=== PATIENT | female | born 1975 | race Caucasian/White ===

== ENCOUNTER 2017-04-24 21:14 | Emergency (ER) | payer MEDICAID ==
[2017-04-24] MEDS ORDERED: OXYCODONE-ACETAMINOPHEN 5-325 MG TABLET PO ONE (23:03)
--- NOTE | 2017-04-24 23:05 | ER Document Report ---
ED General - General Chief Complaint: Foot Pain Stated Complaint: LEFT FOOT SWELLING Time Seen by Provider: 04/24/17 22:58 Notes: 41-year-old female with a history of extensive lower extremity trauma and chronic pain and uses a wheelchair as needed presents with bruising to her left forefoot. 2 days ago she dropped a piece of furniture on her lateral midfoot which had a bump on it to begin with and it hurt worse but this morning she woke up with pain and bruising at the base of her second third and fourth toes. She has intermittent loss of sensation on the bottom of the foot but also has sciatica on that side. She is a smoker. She denies foot feeling cold or red. Denies fever or chills. Pain is been severe at times but is now moderate. TRAVEL OUTSIDE OF THE [place] IN LAST 30 DAYS: No Past Medical History - Social History Smoking Status: Current Every Day Smoker Chew tobacco use (# tins/day): No Frequency of alcohol use: None Drug Abuse: None Occupation: Disabled Family History: None Patient has suicidal ideation: No Patient has homicidal ideation: No - Medical History Notes: Extensive trauma to the left foot and right ankle in the past Renal/ Medical History: Denies: Hx Peritoneal Dialysis Review of Systems - Review of Systems Notes: REVIEW OF SYSTEMS GEN: Denies fever, chills, weight loss ENT: Denies sore throat, nasal discharge, ear pain EYES: Denies blurry vision, eye pain, discharge CV: Denies chest pain, palpitations, edema RESP: Denies cough, shortness of breath, wheezing GI: Denies abdominal pain, nausea, vomiting, diarrhea MSK: Chronic back pain chronic foot pain, SKIN: Denies rash, skin lesions LYMPH: Denies swollen glands/lymph nodes NEURO: Denies headache, focal weakness or numbness, dizziness PSYCH: Denies depression, suicidal or homicidal ideation PHYSICAL EXAMINATION General: No acute distress, well-nourished Head: Atraumatic, normocephalic ENT: Mouth normal, oropharynx moist, no exudates or tonsillar enlargement Eyes: Conjunctiva normal, pupils equal, lids normal Neck: No JVD, supple, no guarding CVS: Normal rate, regular rhythm, no murmurs Resp: No resp distress, equal and normal breath sounds bilaterally GI: Nondistended, soft, no tenderness to palpation, no rebound or guarding Ext: Chronic appearing deformity of the left foot. Tender over the lateral midfoot. Bruising at the base of the second third and fourth toes with tenderness. Warm well perfused with bilateral pedal pulses intact. Back: No CVA or midline TTP Skin: No rash, warm Lymphatic: No lymphadeopathy noted Neuro: Awake, alert. Face symmetric. GCS 15. Normal sensation in feet bilaterally. Physical Exam - Vital signs Vitals: Temp Pulse Resp BP Pulse Ox 97.9 F 83 16 112/57 L 96 04/24/17 21:28 04/24/17 21:28 04/24/17 21:28 04/24/17 21:28 04/24/17 21:28 Course - Re-evaluation Re-evalutation: 04/24/17 23:05 Bruising of the foot after traumatic accident. Fracture versus contusion. Loss of sensation is not likely due to this but rather to pre-existing musculoskeletal trauma to the lower extremity and known sciatica. X-ray Percocet reassess. 04/24/17 23:45 X-ray negative. Percocet was given for pain with some improvement. Hard soled shoe, weightbearing as tolerated (the patient is already bearing weight close ( , follow-up in a week if not better for repeat films for occult fracture. Doubt vascular infectious etiology. Motrin for pain I have discussed with the patient there likely diagnosis, aftercare plan, follow -up plans and my usual and customary return precautions. They verbalized understanding of this. - Vital Signs Vital signs: Temp Pulse Resp BP Pulse Ox 97.9 F 83 16 112/57 L 96 04/24/17 21:28 04/24/17 21:28 04/24/17 21:28 04/24/17 21:28 04/24/17 21:28 - Diagnostic Test Radiology reviewed: Image reviewed, Reports reviewed Discharge - Discharge Clinical Impression: Contusion of left foot including toes Qualifiers: Encounter type: initial encounter Qualified Code(s): S90.32XA - Contusion of left foot, initial encounter Condition: Good Disposition: HOME, SELF-CARE Instructions: Contusion ([facility]) Additional Instructions: Did not find any broken bones on your x-ray today. He also did not have evidence of gangrene or impaired circulation to her left foot. Her bruising is likely from trauma. I will prescribe you a hard soled shoe for comfort for a few days. If your pain persist beyond 5 days I would like you to come back to get repeat x-rays as there are often small fractures which do not show up on initial films. If you develop worsening neurologic symptoms in your foot fever or redness please return to the emergency department immediately. Take ibuprofen for pain. Prescriptions: Ibuprofen [Motrin 600 Mg Tablet] 600 mg PO TID #15 tablet
--- NOTE | 2017-04-24 23:30 | RADIOLOGY REPORT (SQ) ---
EXAM DESCRIPTION: FOOT LEFT COMPLETE COMPLETED DATE/TIME: 04/24/2017 11:20 pm REASON FOR STUDY: forefoot bruiding. Note: old trauma COMPARISON: None. NUMBER OF VIEWS: Three views. TECHNIQUE: AP, lateral and oblique radiographic images acquired of the left foot. LIMITATIONS: None. FINDINGS: MINERALIZATION: Normal. BONES: No acute fracture or dislocation. Moderate degenerative changes throughout the midfoot. . JOINTS: No effusions. SOFT TISSUES: No significant soft tissue swelling. No foreign body. OTHER: No other significant finding. IMPRESSION: NO RADIOGRAPHIC EVIDENCE OF ACUTE INJURY. TECHNICAL DOCUMENTATION: JOB ID: [id number] [place]-72 2010 [employer]- All Rights Reserved
[2017-04-25 00:14] VITALS: BP 102/54
== END 2017-04-25 00:13 | disposition home or self-care (01) ==
LOC: ER 21:14
DX: S90.32XA Contusion of left foot, initial encounter (principal); S90.122A Contusion of left lesser toe(s) without damage to nail, initial encounter; W20.8XXA Other cause of strike by thrown, projected or falling object, initial encounter; M54.30 Sciatica, unspecified side; M54.9 Dorsalgia, unspecified; M79.673 Pain in unspecified foot; G89.29 Other chronic pain; F17.200 Nicotine dependence, unspecified, uncomplicated
CPT/HCPCS: 99283

== ENCOUNTER 2019-04-14 21:05 | Emergency (ER) | payer SELFPAY ==
[2019-04-15] MEDS ORDERED: ACETAMINOPHEN 325 MG TABLET PO ONE (00:19)
[2019-04-15 01:08] LABS: APPEARANCE,URINE CLOUDY; BILIRUBIN,URINE NEGATIVE (NEGATIVE); COLOR,URINE YELLOW; GLUCOSE, URINE NEGATIVE (NEGATIVE); KETONES,URINE NEGATIVE (NEGATIVE); LEUKOCYTE ESTERASE,URINE NEGATIVE (NEGATIVE); NITRITE,URINE NEGATIVE (NEGATIVE); PROTEIN,URINE NEGATIVE (NEGATIVE); URINE SPECIFIC GRAVITY 1.014
[2019-04-15 01:11] LABS: ABSOLUTE EOSINOPHILS # (AUTO) 0.3 10^3/uL (0.0-0.6); ABSOLUTE LYMPHOCYTES (AUTO) 1.2 10^3/uL (0.5-4.7); ABSOLUTE MONOCYTES (AUTO) 0.6 10^3/uL (0.1-1.4); ABSOLUTE NEUT (AUTO) 4.5 10^3/uL (1.7-8.2); BASOPHILS % (AUTO) 0.6 % (0-2); EOSINOPHILS % (AUTO) 4.6 % (0-6); HEMATOCRIT 43.1 % (36.0-47.0); HEMOGLOBIN 14.9 g/dL (12.0-15.5); LYMPHOCYTES % (AUTO) 18.6 % (13-45); MEAN CORPUSCULAR HEMOGLOBIN 32.3 pg (27.0-33.4); MEAN CORPUSCULAR HGB CONC 34.6 g/dL (32.0-36.0); MEAN CORPUSCULAR VOLUME 94 fl (80-97); MONOCYTES % (AUTO) 8.3 % (3-13); PLATELET COUNT 242 10^3/uL (150-450); RED BLOOD COUNT 4.61 10^6/uL (3.72-5.28); RED CELL DISTRIBUTION WIDTH 13.6 % (11.5-14.0); SEGMENTED NEUTROPHILS % (AUTO) 67.9 % (42-78); TOTAL CELLS COUNTED % (AUTO) 100 %; WHITE BLOOD COUNT 6.6 10^3/uL (4.0-10.5)
[2019-04-15 01:37] LABS: ALBUMIN 4.4 g/dL (3.5-5.0); ALKALINE PHOSPHATASE 60 U/L (38-126); ANION GAP 6 (5-19); ASPARTATE AMINO TRANSFERASE 37 U/L (14-36); BILIRUBIN,TOTAL 0.3 mg/dL (0.2-1.3); BLOOD UREA NITROGEN 12 mg/dL (7-20); CALCIUM 9.7 mg/dL (8.4-10.2); CARBON DIOXIDE 31 mmol/L (22-30); CHLORIDE 104 mmol/L (98-107); GLUCOSE 94 mg/dL (75-110); POTASSIUM 4.4 mmol/L (3.6-5.0); TOTAL PROTEIN 7.2 g/dL (6.3-8.2)
--- NOTE | 2019-04-15 01:47 | ER Document Report ---
ED GI/ - General Chief Complaint: Flank Pain Stated Complaint: LOWER BACK PAIN Time Seen by Provider: 04/15/19 01:46 Mode of Arrival: Ambulatory Information source: Patient Notes: Patient reports that she has been feeling multiple somatic pains in her abdomen back for the last 2 weeks. States that she was unable to get to the ED prior to today but because of the persistence of her complaints of pain she thought she should be evaluated in the ED. Patient reports that she has had a stent in her kidney on the right in the past when she feels as though she has kidney problems at this time or urinary tract infection. Reports that she has been coughing some clear mucus without any fever or chills. TRAVEL OUTSIDE OF THE [place] IN LAST 30 DAYS: No - HPI Patient complains to provider of: Abdominal pain, Other - Left chest wall pain Timing/Duration: Gradual Quality of pain: Sharp Severity at maximum: Moderate Severity in ED: Moderate Context: Other - Coughing Location: Right flank - Right flank pain, Other - Left anterior lower rib pain Associated symptoms: Other - Multiple somatic complaints of back pain ,abdominal pain ,rib pain ,cough Relieved by: Other - No relief in the past 2 weeks Similar symptoms previously: Yes - History of kidney stones on the right wearing a stent in the past Recently seen / treated by doctor: No - Related Data Allergies/Adverse Reactions: No Known Allergies Allergy (Unverified 10/18/18 20:14) Past Medical History - Social History Smoking Status: Current Every Day Smoker Family History: None Patient has suicidal ideation: No Patient has homicidal ideation: No Renal/ Medical History: Reports: Hx Kidney Stones. Denies: Hx Peritoneal Dialysis Review of Systems - Review of Systems Constitutional: Recent illness EENT: No symptoms reported Cardiovascular: No symptoms reported Respiratory: Cough Gastrointestinal: Abdominal pain Genitourinary: Flank pain Female Genitourinary: No symptoms reported Musculoskeletal: Back pain Skin: No symptoms reported Hematologic/Lymphatic: No symptoms reported Neurological/Psychological: Anxiety -: Yes All other systems reviewed and negative Physical Exam - Vital signs Vitals: Temp Pulse Resp BP Pulse Ox 98.1 F 72 16 110/56 L 98 04/15/19 00:07 04/15/19 00:07 04/15/19 00:07 04/15/19 00:07 04/15/19 00:07 Interpretation: Normal Notes: Anxious, with pressured speech - Notes Notes: Anxiety with pressured speech - General General appearance: Appears well, Alert - HEENT Head: Normocephalic, Atraumatic Eyes: Normal Pupils: PERRL - Respiratory Respiratory status: No respiratory distress Chest status: Nontender Breath sounds: Normal Chest palpation: Normal - Cardiovascular Rhythm: Regular Heart sounds: Normal auscultation Murmur: No - Abdominal Inspection: Normal Distension: No distension Bowel sounds: Normal Tenderness: Nontender Organomegaly: No organomegaly - Back Back: Normal, Nontender - Extremities General upper extremity: Normal inspection, Nontender, Normal color, Normal ROM, Normal temperature General lower extremity: Normal inspection, Nontender, Normal color, Normal ROM, Normal temperature, Normal weight bearing. No: Keshawn's sign - Neurological Neuro grossly intact: Yes Cognition: Normal Orientation: AAOx4 Radha Coma Scale Eye Opening: Spontaneous [place] Coma Scale Verbal: Oriented [place] Coma Scale Motor: Obeys Commands Radha Coma Scale Total: 15 Speech: Normal Motor strength normal: LUE, RUE, LLE, RLE Sensory: Normal - Psychological Associated symptoms: Normal affect, Normal mood - Skin Skin Temperature: Warm Skin Moisture: Dry Skin Color: Normal Course - Re-evaluation Re-evalutation: 04/15/19 04:07 Patient's laboratories and vital signs have remained stable. There is no evidence for pneumonia or urinary tract infection or GI tract obstruction. Patient has a small punctate right upper pole punctate calcification consistent with a nephrolithiasis. Nonobstructing. Patient also has an adrenal adenoma noted on the on the right side. Otherwise no acute process noted on CT scan of abdomen and pelvis. Rest x-ray does not show any infiltrate of pneumonia and no airspace disease noted. Most likely patient has a viral syndrome with cough and multiple somatic complaints. Will place patient on Tylenol as needed. - Vital Signs Vital signs: Temp Pulse Resp BP Pulse Ox 98.1 F 72 16 110/56 L 98 04/15/19 00:07 04/15/19 00:07 04/15/19 00:07 04/15/19 00:07 04/15/19 00:07 - Laboratory Result Diagrams: 04/15/19 00:48 04/15/19 00:48 Laboratory results interpreted by me: 04/15/19 04/15/19 00:43 00:48 Carbon Dioxide 31 H AST 37 H Urine Urobilinogen 2.0 H - Diagnostic Test Radiology reviewed: Image reviewed, Reports reviewed Radiology results interpreted by me: 04/15/19 04:09 CT scan shows no obstruction of abdomen pelvis. Small punctate right upper pole kidney calcification consistent with nephrolithiasis. Nonobstructing. Small enlargement of adrenal gland on the right consistent with an adrenal adenoma. Otherwise no other acute process no inflammatory process noted. Chest x-ray does not show an infiltrate of pneumonia no airspace disease and normal heart size. Discharge - Discharge Clinical Impression: Viral syndrome, Multiple somatic complaints, Left-sided chest wall pain Abdominal pain Qualifiers: Abdominal location: generalized Qualified Code(s): R10.84 - Generalized abdominal pain Condition: Stable Disposition: HOME, SELF-CARE Instructions: Viral Syndrome ([facility]) Additional Instructions: Viral Syndrome The physician has diagnosed a viral infection. Viruses not only cause " colds," but can cause many different symptoms including generalized aching, fever, headache, cough, diarrhea, nausea, vomiting, and fatigue. The treatment, for the most part, is simply relief of symptoms. This means that antibiotics are usually not given. Rest, fluids, pain medications and, oc casionally, medication for the specific symptoms that are most bothersome will be prescribed. Use good handwashing to avoid passing the virus to others. Shared toys should be cleaned with disinfectant. Clean the toilets, sinks, and counter surfaces in bathrooms. Launder clothing in hot water. Contact the physician if you develop any new or unusual symptoms such as severe headache, stiff neck, high fever, chest pain, productive cough, or shortness of breath. You should be rechecked if you don't see marked improvement within seven to 10 days. Tylenol as needed for pain.
[2019-04-15] MEDS ORDERED: NORMAL SALINE 1000 ML 1,000 ML IV ONE (02:06)
--- NOTE | 2019-04-15 03:26 | RADIOLOGY REPORT (SQ) ---
CLINICAL HISTORY: left flank pain COMPARISON: None. TECHNIQUE: CT ABDOMEN PELVIS WITHOUT IV CONTRAST on 04/15/2019 2:08 AM TRAINING DIRECTOR This exam was performed according to our departmental dose-optimization program, which includes automated exposure control, adjustment of the mA and/or kV according to patient size and/or use of iterative reconstruction technique. FINDINGS: Lower lungs are clear. Abdomen: Liver is fatty in attenuation and is enlarged. Bladder is normal in appearance. There is no biliary dilatation. The pancreas and spleen are normal in appearance. There is a small left adrenal adenoma measuring 1.9 cm. Right adrenal gland is normal. Kidneys are unremarkable with the exception of a questionable punctate upper pole right renal calculus. There is no hydronephrosis. Abdominal aorta is normal in course and caliber without aneurysm. There is no free air. There is no retroperitoneal adenopathy. Pelvis: There is no bowel obstruction. Urinary bladder is unremarkable. There is no free fluid. Uterus is normal in size. Appendix is not seen. Skeleton: There are no acute osseous findings. No suspicious bony lesions. IMPRESSION: Questionable right nephrolithiasis without hydronephrosis. No left renal or ureteral calculi. No acute inflammatory process.
[2019-04-15] MEDS ORDERED: KETOROLAC TROMETHAMINE INJ/PF 30 MG/1 ML SDV IV ONE (03:44)
--- NOTE | 2019-04-15 03:50 | RADIOLOGY REPORT (SQ) ---
EXAM DESCRIPTION: XR CHEST 1 VIEW COMPLETED DATE/TME: 04/15/2019 02:06 CLINICAL HISTORY: 43 years, Female, cough/ left anterior rib cage pain COMPARISON: None. NUMBER OF VIEWS: One TECHNIQUE: AP view the chest LIMITATIONS: None. FINDINGS: The lungs are clear. The heart is normal in size. There is no pneumothorax or pleural effusion. There is no acute fracture IMPRESSION: No acute cardiopulmonary abnormality copyright 2011 [employer]- All Rights Reserved
[2019-04-15 04:33] VITALS: BP 107/53
== END 2019-04-15 04:51 | disposition home or self-care (01) ==
LOC: ER 21:05
DX: B34.9 Viral infection, unspecified (principal); N20.0 Calculus of kidney; R10.84 Generalized abdominal pain; M54.5 Low back pain; R07.89 Other chest pain; Z87.442 Personal history of urinary calculi; F17.200 Nicotine dependence, unspecified, uncomplicated
CPT/HCPCS: 99284; 96361; 96374; 36415; 83690; 85025; 80053; 81001; 71045; 74176; J1885; J7030